=== PATIENT | male | born 1960 | race Caucasian/White ===

== ENCOUNTER 2021-01-24 07:34 | Outpatient (CLI) | payer BC, SELFPAY ==
[2021-01-24 20:06] LABS: Basophils Absolute Auto 0.1 K/mm3 (0.0-0.1); Basophils Percent Auto 0.8 % (0.2-1.2); Eosinophils Absolute Auto 0.3 K/mm3 (0-0.3); Eosinophils Percent Auto 4.4 % (0-4.4); Hematocrit 43.1 % (42.0-52.0); Hemoglobin 13.5 g/dL (14.0-18.0); Immature Granulocyte Absolute 0.03 K/mm3 (0.00-0.031); Immature Granulocyte Percent A 0.5 % (0-0.5); Lymphocytes Absolute Auto 1.67 K/mm3 (0.9-3.2); Lymphocytes Percent Auto 25.1 % (18.3-44.2); Mean Corpuscular HGB Conc 31.3 g/dl (32-36); Mean Corpuscular Hemoglobin 27.6 pg (26-34); Mean Platelet Volume 10.8 fl (7.4-10.4); Monocytes Absolute Auto 0.5 K/mm3 (0.1-0.6); Monocytes Percent Auto 8.1 % (2.6-8.5); Neutrophils Absolute Auto 4.1 K/mm3 (1.3-6.7); Neutrophils Percent Auto 61.1 % (45.5-73.1); Platelet Count Result 234 k/mm3 (150-375); Red Cell Distribution Width 14.9 % (11.5-14.5); White Blood Count 6.7 K/mm3 (4.5-10.0)
[2021-01-24 20:26] LABS: Alanine Aminotransferase 17 U/L (4-50); Albumin Level 4.3 g/dL (3.5-5.1); Alkaline Phosphatase 49 U/L (38-126); Anion Gap 8 mmol/L (8-16); Aspartate Amino Transferase 19 U/L (17-59); Bilirubin,Total 0.6 mg/dL (0.2-1.3); Blood Urea Nitrogen 14 mg/dL (9-20); Calcium 9.5 mg/dL (8.4-10.2); Carbon Dioxide 28 mmol/L (22-30); Chloride 101 mmol/L (98-107); Cholesterol 110 mg/dL (0-200); Estimated Glomerular Filt Rate > 60; Glucose 118 mg/dL (65-110); HDL Direct 49 mg/dL; Potassium 4.4 mmol/L (3.4-5.0); Sodium 137 mmol/L (137-145); Triglycerides 83 mg/dL (<150)
[2021-01-24 20:33] LABS: Free T4 Free Thyroxine 1.04 ng/mL (0.78-2.19); Vitamin D 25 Hydroxy 39.5 ng/mL
[2021-01-24 20:37] LABS: LDL Cholesterol Direct 48 mg/dL
[2021-01-24 20:58] LABS: Prostate Specific Antigen 2.1 ng/mL (< OR = 4.0)
[2021-01-24 21:24] LABS: Hemoglobin A1C 6.4 % (<5.7)
[2021-01-24 21:47] LABS: Creatinine Urine 71.7 mg/dL
[2021-01-24 21:54] LABS: MALB Creatinine Ratio < 8.4 mg/g (0-30); Microalbumin Urine Random < 6.0 mg/L (0-16.7)
[2021-01-28 09:13] LABS: Testosterone Free 119.6 pg/mL (46.0-224.0); Testosterone Total 584 ng/dL (250-1100)
[2021-01-30 05:56] LABS: Triiodothyronine T3 Free 3.2 pg/mL (2.3-4.2)
== END 2021-01-24 07:35 | disposition home or self-care (01) ==
LOC: ANHBWCLAB 07:36
PROVIDERS: PCP Family Medicine; Visit Provider Family Medicine
DX: E11.9 Type 2 diabetes mellitus without complications (principal); N40.0 Benign prostatic hyperplasia without lower urinary tract symptoms; E03.9 Hypothyroidism, unspecified; R79.89 Other specified abnormal findings of blood chemistry; G47.33 Obstructive sleep apnea (adult) (pediatric); E29.1 Testicular hypofunction; E53.8 Deficiency of other specified B group vitamins; Z12.5 Encounter for screening for malignant neoplasm of prostate
CPT/HCPCS: 36415; 80053; 80061; 82043; 82306; 82607; 83036; 84153; 84402; 84403; 84436; 84439; 84443; 84479; 84481; 85025; G0103

== ENCOUNTER 2021-07-23 08:53 | Outpatient (CLI) | payer BC, SELFPAY ==
[2021-07-23 19:02] LABS: Basophils Absolute Auto 0.1 K/mm3 (0.0-0.1); Basophils Percent Auto 0.9 % (0.2-1.2); Eosinophils Absolute Auto 0.3 K/mm3 (0-0.3); Eosinophils Percent Auto 4.4 % (0-4.4); Hematocrit 42.5 % (42.0-52.0); Hemoglobin 13.6 g/dL (14.0-18.0); Immature Granulocyte Absolute 0.12 K/mm3 (0.00-0.031); Immature Granulocyte Percent A 1.6 % (0-0.5); Lymphocytes Absolute Auto 1.75 K/mm3 (0.9-3.2); Lymphocytes Percent Auto 23.2 % (18.3-44.2); Mean Corpuscular Hemoglobin 28.2 pg (26-34); Mean Corpuscular Volume 88.2 fl (80-100); Mean Platelet Volume 10.1 fl (7.4-10.4); Monocytes Absolute Auto 0.7 K/mm3 (0.1-0.6); Monocytes Percent Auto 9.3 % (2.6-8.5); Neutrophils Absolute Auto 4.6 K/mm3 (1.3-6.7); Neutrophils Percent Auto 60.6 % (45.5-73.1); Platelet Count Result 258 k/mm3 (150-375); Red Blood Count 4.82 M/mm3 (4.6-6.20); Red Cell Distribution Width 14.6 % (11.5-14.5); White Blood Count 7.5 K/mm3 (4.5-10.0)
[2021-07-23 19:10] LABS: Alanine Aminotransferase 19 U/L (4-50); Albumin Level 4.4 g/dL (3.5-5.1); Alkaline Phosphatase 68 U/L (38-126); Anion Gap 11 mmol/L (8-16); Aspartate Amino Transferase 23 U/L (17-59); Bilirubin,Total 0.6 mg/dL (0.2-1.3); Blood Urea Nitrogen 23 mg/dL (9-20); Calcium 9.2 mg/dL (8.4-10.2); Carbon Dioxide 27 mmol/L (22-30); Chloride 100 mmol/L (98-107); Cholesterol 144 mg/dL (0-200); Estimated Glomerular Filt Rate > 60; Glucose 117 mg/dL (65-110); HDL Direct 55 mg/dL; Potassium 4.3 mmol/L (3.4-5.0); Sodium 138 mmol/L (137-145); Triglycerides 139 mg/dL (<150)
[2021-07-23 19:21] LABS: LDL Cholesterol Direct 72 mg/dL
[2021-07-23 19:29] LABS: Creatinine Urine 92.5 mg/dL
[2021-07-23 19:34] LABS: MALB Creatinine Ratio 10.8 mg/g (0-30)
[2021-07-23 19:43] LABS: Prostate Specific Antigen 3.6 ng/mL (< OR = 4.0)
[2021-07-23 20:47] LABS: Hemoglobin A1C 6.3 % (<5.7)
[2021-07-28 14:34] LABS: Testosterone Free 115.9 pg/mL (35.0-155.0); Testosterone Total 483 ng/dL (250-1100)
== END 2021-07-23 08:54 | disposition home or self-care (01) ==
LOC: ANHBWCLAB 08:55
PROVIDERS: PCP Family Medicine; Visit Provider Family Medicine
DX: E03.9 Hypothyroidism, unspecified (principal); E11.9 Type 2 diabetes mellitus without complications; E29.1 Testicular hypofunction
CPT/HCPCS: 36415; 80053; 80061; 82043; 83036; 84153; 84402; 84403; 84443; 85025; G0103

== ENCOUNTER 2021-09-03 10:00 | Outpatient (CLI) | payer BC, SELFPAY ==
--- NOTE | ~2021-09-03 | XR_ITS ---
XR shoulder LT min 2V DATE: 09/03/2021 10:12 INDICATION: Left shoulder pain. No known injury. TECHNIQUE: 4 views COMPARISON: None FINDINGS: No fracture or dislocation, periosteal reaction or bone destruction is detected. There is levoscoliosis of the upper thoracic spine. Prominent calcifications in the right azygous and paratracheal area, apparently probably calcified lymph nodes. IMPRESSION: No fracture or dislocation or bone destruction of left shoulder Reviewed, dictated and finalized at location A. [employer]
== END 2021-09-03 10:01 | disposition home or self-care (01) ==
LOC: ANHBWCIMG 10:01
PROVIDERS: PCP Family Medicine; Visit Provider Family Medicine
DX: M25.519 Pain in unspecified shoulder (principal)
CPT/HCPCS: 73030